=== PATIENT | male | born 1980 | race Caucasian/White ===

== ENCOUNTER 2025-03-08 15:48 | Emergency (ER) | payer MEDICAID, SELFPAY ==
[2025-03-08 16:01] VITALS: BP 121/81; PULSE 65; RESP 16; TEMP 36.1; O2SAT 100
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
== END 2025-03-08 16:34 | disposition home or self-care (01) ==
LOC: ED 16:31
PROVIDERS: Emergency Provider Emergency Medicine
DX: T15.02XA Foreign body in cornea, left eye, initial encounter (principal)
CPT/HCPCS: 99283; A9270